=== PATIENT | male | born 1965 | race Caucasian/White ===

== ENCOUNTER 2023-12-06 13:54 | Emergency (ER) | payer OTHER ==
[~2023-12-06] VITALS: Ht 172.7 cm; Wt 75.0 kg
[2023-12-06 13:57] VITALS: O2SAT 100
[2023-12-06] MEDS: KETOROLAC 30MG/ML VIAL IV STA (14:29)
[2023-12-06 14:46] LABS: BASOPHILS % 1.2 % (0.0-2.0); EOSINOPHILS % 8.1 % (0.0-5.0); HEMATOCRIT. 43.1 % (42.0-52.0); HEMOGLOBIN. 14.2 g/dL (14.0-18.0); MEAN CORPUSCULAR HEMOGLOBIN 27.6 pg (28.0-32.0); MEAN CORPUSCULAR HGB CONC 33.1 g/dL (31.0-37.0); MEAN CORPUSCULAR VOLUME 83.3 fL (80.0-94.0); MEAN PLATELET VOLUME 8.6 fl (7.4-10.4); MONOCYTES % 8.2 % (2.0-8.0); NEUTROPHILS % 57.5 % (40.0-76.0); PLATELET 262 x1000/uL (130-400); RED BLOOD CELL COUNT 5.17 mill/uL (4.7-6.1); WHITE BLOOD COUNT 5.6 x1000/uL (4.5-11.0)
[2023-12-06 14:51] LABS: CARBON DIOXIDE 22 mEq/L (21-32); CHLORIDE 108 mEq/L (98-107); POTASSIUM 4.2 mEq/L (3.5-5.1); SODIUM 139 mEq/L (136-145)
[2023-12-06 14:52] LABS: CALCIUM 9.3 mg/dL (8.7-10.4)
[2023-12-06 14:56] LABS: CREATININE 0.9 mg/dL (0.6-1.3)
[2023-12-06 14:57] LABS: GLUCOSE 108 mg/dL (70-105); UREA NITROGEN BLOOD 17 mg/dL (9-23)
[2023-12-06 14:58] LABS: ALANINE AMINOTRANSFERASE 17 IU/L (10-49)
[2023-12-06 14:59] LABS: ASPARTATE AMINOTRANSFERASE 15 IU/L (<34); BILIRUBIN DIRECT 0.1 mg/dL (<=3.0); BILIRUBIN TOTAL 0.4 mg/dL (0.1-1.0); INR 0.9; PROTEIN TOTAL 6.5 g/dL (6.0-8.3); PROTHROMBIN TIME 10.6 sec (9.6-11.0); TROPONIN I HIGH SENSITIVITY 24 ng/L (3.0-53)
[2023-12-06 16:15] LABS: CLARITY URINE CLEAR (CLEAR); COLOR URINE YELLOW (YELLOW); GLUCOSE URINE NEGATIVE (NEGATIVE); KETONES URINE NEGATIVE (NEGATIVE); LEUKOCYTE ESTERASE URINE 3+ (NEGATIVE); NITRITE URINE NEGATIVE (NEGATIVE); OCCULT BLOOD URINE TRACE (NEGATIVE); PH URINE 6.5 (4.5-8.0); PROTEIN URINE NEGATIVE (NEGATIVE); SPECIFIC GRAVITY URINE 1.012 (1.005-1.030); UROBILINOGEN URINE 0.2 E.U./dL (0.2-1.0)
[2023-12-06 16:22] VITALS: BP 150/64; PULSE 62; RESP 18; TEMP 98.4
[2023-12-06 16:56] LABS: BACTERIA URINE 1+; RBC URINE 0-2 /hpf (0-2); SQUAMOUS EPITHELIAL CELL URINE FEW /lpf (RARE/1+)
[2023-12-06 17:51] LABS: TROPONIN I HIGH SENSITIVITY 23 ng/L (3.0-53)
[2023-12-06] MEDS ORDERED: CEFP200T13 MT (19:01)
== END 2023-12-06 19:50 | disposition home or self-care (01) ==
LOC: ER 13:54
DX: N39.0 Urinary tract infection, site not specified (principal); K80.20 Calculus of gallbladder without cholecystitis without obstruction; I11.0 Hypertensive heart disease with heart failure; I50.9 Heart failure, unspecified
CPT/HCPCS: 99285; 74176; 96374; 71045; 80076; 80048; 81003; 83880; 83690; 85025; 85610; 84484; 36415; 93005; J1885

== ENCOUNTER 2024-02-13 21:54 | Emergency (ER) | payer OTHER ==
[~2024-02-13] VITALS: Ht 165.1 cm; Wt 70.0 kg
[~2024-02-13 21:54] MED LIST: CEFP200T13 MT
[2024-02-13 21:56] VITALS: O2SAT 100
[2024-02-14 01:48] LABS: BASOPHILS % 0.8 % (0.0-2.0); EOSINOPHILS % 5.7 % (0.0-5.0); HEMATOCRIT. 47.5 % (42.0-52.0); HEMOGLOBIN. 15.6 g/dL (14.0-18.0); LYMPHOCYTES % 30.6 % (20.0-50.0); MEAN CORPUSCULAR HEMOGLOBIN 27.2 pg (28.0-32.0); MEAN CORPUSCULAR HGB CONC 32.9 g/dL (31.0-37.0); MEAN CORPUSCULAR VOLUME 82.7 fL (80.0-94.0); MEAN PLATELET VOLUME 8.4 fl (7.4-10.4); MONOCYTES % 10.7 % (2.0-8.0); NEUTROPHILS % 52.2 % (40.0-76.0); PLATELET 230 x1000/uL (130-400); RED BLOOD CELL COUNT 5.75 mill/uL (4.7-6.1); RED CELL DISTRIBUTION WIDTH 14.3 % (11.6-14.6); WHITE BLOOD COUNT 8.3 x1000/uL (4.5-11.0)
[2024-02-14 01:49] LABS: CHLORIDE 107 mEq/L (98-107); POTASSIUM 4.5 mEq/L (3.5-5.1); SODIUM 139 mEq/L (136-145)
[2024-02-14 01:50] LABS: CALCIUM 10.4 mg/dL (8.7-10.4); CARBON DIOXIDE 26 mEq/L (21-32)
[2024-02-14 01:55] LABS: GLUCOSE 123 mg/dL (70-105); UREA NITROGEN BLOOD 21 mg/dL (9-23)
[2024-02-14 01:59] LABS: CREATININE 1.4 mg/dL (0.6-1.3)
[2024-02-14 02:00] LABS: ETHANOL BLOOD < 10 mg/dL (<10)
[2024-02-14] MEDS: KETOROLAC 30MG/ML VIAL IM STA (02:27)
[2024-02-14] MEDS: HYDROCODONE/ACETAMINOPHEN 5/325MG TABLET PO STA (02:27)
[2024-02-14] MEDS ORDERED: ACET-2708 PO (03:14)
[2024-02-14] MEDS ORDERED: DOCU100T PO (03:14)
[2024-02-14 03:31] VITALS: BP 134/75; PULSE 72; RESP 17; TEMP 37.05852; O2SAT 100
== END 2024-02-14 03:31 | disposition home or self-care (01) ==
LOC: ER 21:54
DX: K40.90 Unilateral inguinal hernia, without obstruction or gangrene, not specified as recurrent (principal)
CPT/HCPCS: 99283; 80048; 80320; 83690; 85025; 36415; 96372; J1885; G0480

== ENCOUNTER 2024-02-15 12:17 | Emergency (ER) | payer OTHER ==
[~2024-02-15] VITALS: Ht 162.6 cm; Wt 75.0 kg
[~2024-02-15 12:17] MED LIST changes: +ACET-2708 PO; +DOCU100T PO
[2024-02-15 12:20] VITALS: O2SAT 97
[2024-02-15 13:00] VITALS: BP 126/72; PULSE 94; RESP 16; TEMP 37.00296; O2SAT 97
== END 2024-02-15 16:50 | disposition home or self-care (01) ==
LOC: ER 12:17
DX: K40.90 Unilateral inguinal hernia, without obstruction or gangrene, not specified as recurrent (principal); I11.0 Hypertensive heart disease with heart failure; F19.90 Other psychoactive substance use, unspecified, uncomplicated; I50.9 Heart failure, unspecified
CPT/HCPCS: 49507; 99284

== ENCOUNTER 2024-04-27 12:31 | Emergency (ER) | payer OTHER ==
[~2024-04-27] VITALS: Ht 162.6 cm; Wt 77.0 kg
[2024-04-27 12:35] VITALS: BP 170/74; PULSE 60; RESP 16; TEMP 98.1; O2SAT 99
[2024-04-27 13:26] LABS: PROTHROMBIN TIME 10.8 sec (9.6-11.0)
[2024-04-27 13:27] LABS: CHLORIDE 108 mEq/L (98-107); POTASSIUM 4.9 mEq/L (3.5-5.1); SODIUM 139 mEq/L (136-145)
[2024-04-27 13:28] LABS: BASOPHILS % 0.8 % (0.0-2.0); EOSINOPHILS % 6.9 % (0.0-5.0); HEMATOCRIT. 45.9 % (42.0-52.0); HEMOGLOBIN. 15.3 g/dL (14.0-18.0); LYMPHOCYTES % 21.8 % (20.0-50.0); MEAN CORPUSCULAR HEMOGLOBIN 27.5 pg (28.0-32.0); MEAN CORPUSCULAR HGB CONC 33.4 g/dL (31.0-37.0); MEAN CORPUSCULAR VOLUME 82.3 fL (80.0-94.0); MEAN PLATELET VOLUME 8.6 fl (7.4-10.4); MONOCYTES % 8.3 % (2.0-8.0); NEUTROPHILS % 62.2 % (40.0-76.0); PLATELET 217 x1000/uL (130-400); RED BLOOD CELL COUNT 5.58 mill/uL (4.7-6.1); RED CELL DISTRIBUTION WIDTH 14.2 % (11.6-14.6); WHITE BLOOD COUNT 7.7 x1000/uL (4.5-11.0)
[2024-04-27 13:29] LABS: CALCIUM 9.9 mg/dL (8.7-10.4); CARBON DIOXIDE 27 mEq/L (21-32)
[2024-04-27 13:34] LABS: CREATININE 1.1 mg/dL (0.6-1.3); GLUCOSE 105 mg/dL (70-105); UREA NITROGEN BLOOD 19 mg/dL (9-23)
[2024-04-27 13:36] LABS: ALANINE AMINOTRANSFERASE 19 IU/L (10-49); ALBUMIN 4.6 g/dL (3.2-4.8); ASPARTATE AMINOTRANSFERASE 16 IU/L (<34); BILIRUBIN DIRECT 0.1 mg/dL (<=3.0); BILIRUBIN TOTAL 0.6 mg/dL (0.1-1.0); PROTEIN TOTAL 7.2 g/dL (6.0-8.3)
== END 2024-04-27 14:14 | disposition home or self-care (01) ==
LOC: ER 12:31
DX: K40.90 Unilateral inguinal hernia, without obstruction or gangrene, not specified as recurrent (principal); I11.0 Hypertensive heart disease with heart failure; I50.9 Heart failure, unspecified
CPT/HCPCS: 36415; 80048; 80076; 85025; 99283